=== PATIENT | female | born 1945 | race Caucasian/White ===

== ENCOUNTER 2019-06-16 23:47 | Emergency (ER) | payer OTHER ==
[2019-06-16] MEDS ORDERED: SODIUM CHLORIDE 500 ML IV STA (23:52)
[2019-06-16] MEDS ORDERED: ONDANSETRON 4 MG/2 ML VIAL IVPUSH ONE (23:52)
--- NOTE | 2019-06-16 23:52 | PDOC ---
History of Present Illness - General Chief Complaint: Vomiting/Diarrhea Stated Complaint: VOMITING DIARRHEA AFTER EATING Time Seen by Provider: 06/16/19 23:52 - History of Present Illness Initial Comments: This 73-year-old woman with a history of peptic ulcer disease but no other significant medical history presents with several hours of nausea/vomiting/ diarrhea. The patient traveled today back from [place] where she was visiting; she states that she stored some food including veal sandwiches ,which contained cheese, in the car while she travel. She admits that the interior of the car was rather warm and the food was stored during the entire 2-1/2 hours that it took to return home.. When she arrived home early this evening, she ate a sandwich and within an hour began to have epigastric pain followed by nausea and vomiting. This was followed by multiple episodes of loose stools. Other than a tiny amount of blood seen in lateral portions of the emesis, no significant amounts of blood or mucus seen in either the vomiting or bowel movements. She also had significant given amount of intermittent crampy abdominal pain during the evening. No fever/chills noted. Past History - Past Medical History Allergies/Adverse Reactions: Allergies Allergy/AdvReac Type Severity Reaction Status Date / Time codeine Allergy Verified 06/17/19 00:11 latex Allergy Verified 06/17/19 00:11 Home Medications: Ambulatory Orders Ondansetron [Zofran *Odt*] 4 mg SL BID PRN #8 od.tablet 06/17/19 Ranitidine HCl [Zantac] 150 mg PO BID 06/17/19 Cardiac Disorders: No Diabetes: No GI Disorders: Yes (peptic ulcer disease) HTN: No Hypercholesterolemia: No - Suicide/Smoking/Psychosocial Hx Smoking History: Never smoked Hx Alcohol Use: No Substance Use Type: None Review of Systems - Review of Systems Able to Perform ROS?: Yes Comments:: 12 point review of systems is negative except for what is noted in the history of present illness *Physical Exam - Physical Exam Comments: GENERAL: Elderly female, alert and oriented 3 in mild distress secondary to nausea/abdominal pain HEAD: Normal with no signs of trauma. EYES: PERRLA, EOMI, sclera anicteric, conjunctiva clear. ENT: Ears normal, nares patent, oropharynx clear without exudates. Dry mucous membranes. NECK: Normal range of motion, supple without lymphadenopathy, JVD, or masses. LUNGS: Breath sounds equal, clear to auscultation bilaterally. No wheezes, and no crackles. HEART:Regular rate and rhythm, normal S1 and S2 without murmur, rub or gallop. ABDOMEN:.normal bowel sounds generalized mild tenderness without point tenderness/rebound/guarding/masses EXTREMITIES: Normal range of motion, no edema. No clubbing or cyanosis. No erythema, or tenderness. NEUROLOGICAL: Cranial nerves II through XII grossly intact. Normal speech. No focal neurological deficits. SKIN: Warm, Dry, normal turgor, no rashes or lesions noted. Progress Note - Progress Note Progress Note: This 73-year-old woman presents with nausea/vomiting/diarrhea 1 hour after eating food that had been stored at room temperature in a car for at least 2-1/ 2 hours while returning home from a visit. Exam as noted with dry mucous membranes and mild, generalized tenderness without point tenderness or masses. Clinical presentation most consistent with gastroenteritis likely secondary to exposure to food spoilage. Although infectious viral or bacterial etiology is still possible, the clear temporal relationship between the onset of symptoms and ingestion of food that had been stored improperly highly suggests that this is toxin-related gastroenteritis. Patient received 500 mL of normal saline and 4 mg Zofran IV. Patient felt significantly better after IV hydration and Zofran. She states that her abdominal cramping and nausea have resolved. Reexamination reveals mucous membranes that are better hydrated and no significant tenderness present in her abdomen. Patient will be discharged with recommendation to maintain a clear liquid diet and advance diet cautiously. Prescription for Zofran ODT 4 mg to be taken up to twice a day as needed for persistent nausea was sent to her pharmacy She return to the emergency room if she has persistent recurrent vomiting or bloody diarrhea. She should follow-up with her general medical doctor within the next 48 hours. *DC/Admit/Observation/Transfer Diagnosis at time of Disposition: Acute gastroenteritis - Discharge Dispostion Disposition: HOME Condition at time of disposition: Stable - Prescriptions Prescriptions: Ondansetron [Zofran *Odt*] 4 mg SL BID PRN #8 od.tablet PRN Reason: Nausea - Referrals - Patient Instructions Printed Discharge Instructions: DI for Bacterial Gastroenteritis -- Adult Additional Instructions: Rest; clear liquid diet Advance diet cautiously as tolerated Zofran ODT 4 mg up to twice a day as needed for nausea Return to ER if you have persistent nausea/vomiting, severe pain, fever or bloody diarrhea Follow-up with your doctor within the next 48 hours - Post Discharge Activity
[2019-06-16] MEDS ORDERED: ONDANSETRON 4 MG/2 ML VIAL ONE (23:57)
[2019-06-17 00:26] VITALS: PULSE 60; TEMP 98.3; BMI 25.5
[2019-06-17 00:56] VITALS: BP 129/68
== END 2019-06-17 01:00 | disposition home or self-care (01) ==
LOC: FER 23:47
PROC: 3E033GC Introduction of Other Therapeutic Substance into Peripheral Vein, Percutaneous Approach (ICD-10-PCS; principal; 2019-06-16)
PROC: 3E0337Z Introduction of Electrolytic and Water Balance Substance into Peripheral Vein, Percutaneous Approach (ICD-10-PCS; 2019-06-16)
DX: K52.9 Noninfective gastroenteritis and colitis, unspecified (principal)
CPT/HCPCS: 99281-25

== ENCOUNTER 2021-02-10 08:45 | Day surgery (SDC) | payer OTHER ==
[2021-02-02 14:14] VITALS: BMI 25.5
[2021-02-10] MEDS ORDERED: CYCLOPENTOLATE 2% OPHTH SOLN 2 ML BOTTLE ONE (09:29)
[2021-02-10] MEDS ORDERED: TROPICAMIDE 1% OPHTH SOLN 15 ML BOTTLE ONE (09:30)
[2021-02-10] MEDS ORDERED: PHENYLEPHRINE 2.5% OPHTH SOLN 15 ML BOTTLE ONE (09:30)
[2021-02-10] MEDS ORDERED: CIPROFLOXACIN 0.3% EYE DROPS 5 ML BOTTLE ONE (09:30)
[2021-02-10] MEDS ORDERED: TROPICAMIDE 1% OPHTH SOLN 15 ML BOTTLE OS ONE ×3 (10:10→10:20)
[2021-02-10] MEDS ORDERED: CIPROFLOXACIN 0.3% EYE DROPS 5 ML BOTTLE OS ONE ×3 (10:10→10:20)
[2021-02-10] MEDS ORDERED: PHENYLEPHRINE 2.5% OPHTH SOLN 15 ML BOTTLE OS ONE ×3 (10:10→10:20)
[2021-02-10] MEDS ORDERED: CYCLOPENTOLATE 2% OPHTH SOLN 2 ML BOTTLE OS ONE ×3 (10:10→10:20)
[2021-02-10] MEDS ORDERED: MIDAZOLAM HCL 2 MG/2 ML SINGLE DOSE VIAL ONE (10:36)
[2021-02-10] MEDS ORDERED: CARBACHOL 0.01% INTRA-OCULAR 1.5 ML VIAL ONE (10:57)
[2021-02-10] MEDS ORDERED: BSS (NA/CA/MG/K) BALANCED SALT SOLUTION OPHTH SOLN 15 ML BOTTLE ONE (10:57)
[2021-02-10] MEDS ORDERED: LIDOCAINE 1% P/F 10 MG/ML VIAL ONE (10:57)
[2021-02-10] MEDS ORDERED: NEO/POLYMYX B SULF/DEXAMETH OPHTHALMIC 5ML BOTTLE ONE (10:57)
[2021-02-10] MEDS ORDERED: TETRACAINE 0.5% OPHTH SOLN 2 ML BOTTLE ONE (10:57)
[2021-02-10 11:37] VITALS: TEMP 97.8
[2021-02-10 11:56] VITALS: BP 121/62; PULSE 81
== END 2021-02-10 12:00 | disposition home or self-care (01) ==
LOC: FASU 08:45
PROVIDERS: ATTEND Ophthalmology
PROC: 08RK3JZ Replacement of Left Lens with Synthetic Substitute, Percutaneous Approach (ICD-10-PCS; principal; 2021-02-10 11:12)
DX: H26.8 Other specified cataract (principal)

== ENCOUNTER 2021-03-03 07:25 | Day surgery (SDC) | payer OTHER ==
[2021-02-25 14:29] VITALS: BMI 24.8
[2021-03-03] MEDS: PHENYLEPHRINE 2.5% OPHTH SOLN 15 ML BOTTLE ONE ×3 (07:45→07:57)
[2021-03-03] MEDS: TROPICAMIDE 1% OPHTH SOLN 15 ML BOTTLE ONE ×3 (07:45→08:00)
[2021-03-03] MEDS: CIPROFLOXACIN 0.3% EYE DROPS 5 ML BOTTLE ONE ×3 (07:45→07:57)
[2021-03-03] MEDS: CYCLOPENTOLATE 2% OPHTH SOLN 2 ML BOTTLE ONE ×3 (07:45→07:57)
[2021-03-03] MEDS ORDERED: TETRACAINE 0.5% OPHTH SOLN 2 ML BOTTLE ONE (09:18)
[2021-03-03] MEDS ORDERED: EPINEPHrine/PF 1 MG/1 ML (1:1,000) AMPULE ONE (09:18)
[2021-03-03] MEDS ORDERED: LIDOCAINE 1% P/F 10 MG/ML VIAL ONE (09:18)
[2021-03-03] MEDS ORDERED: NEO/POLYMYX B SULF/DEXAMETH OPHTHALMIC 5ML BOTTLE ONE (09:18)
[2021-03-03] MEDS ORDERED: CARBACHOL 0.01% INTRA-OCULAR 1.5 ML VIAL ONE (09:18)
[2021-03-03] MEDS ORDERED: BSS (NA/CA/MG/K) BALANCED SALT SOLUTION OPHTH SOLN 15 ML BOTTLE ONE (09:18)
[2021-03-03 10:06] VITALS: TEMP 98.2
[2021-03-03 10:08] VITALS: BP 124/65; PULSE 66
== END 2021-03-03 10:08 | disposition home or self-care (01) ==
LOC: FASU 07:25
PROVIDERS: ATTEND Ophthalmology
PROC: 08RJ3JZ Replacement of Right Lens with Synthetic Substitute, Percutaneous Approach (ICD-10-PCS; principal; 2021-03-03 09:32)
DX: H26.8 Other specified cataract (principal)

== ENCOUNTER 2023-07-17 18:42 | Emergency (ER) | payer OTHER ==
[2023-07-17 19:02] VITALS: PULSE 81; RESP 16; TEMP 98.7; BMI 26.7
[2023-07-17 20:13] VITALS: BP 126/57
[2023-07-17 20:20] LABS: HEMATOCRIT 38.1 % (32.4-45.2); HEMOGLOBIN 12.8 G/dL (10.7-15.3); MCH 27.5 pg (25.7-33.7); MCHC 33.6 g/dl (32.0-36.0); MEAN PLT VOLUME 8.4 fl (7.5-11.1); PLATELET COUNT 222.7 10^3/uL (134-434); RBC 4.65 10^6/uL (3.60-5.2); RDW 14.9 % (11.6-15.6); WHITE BLOOD COUNT 7.8 10^3/uL (4.0-10.8)
[2023-07-17 20:38] LABS: ALBUMIN 4.1 g/dl (3.4-5.0); BILIRUBIN,TOTAL 0.5 mg/dl (0.2-1); CALCIUM 9.1 mg/dl (8.5-10.1); CREATININE 0.8 mg/dl (0.6-1.3); POTASSIUM 3.9 mmol/L (3.5-5.1); TOT PROT 5.8 g/dl (6.4-8.2)
== END 2023-07-17 21:37 | disposition home or self-care (01) ==
LOC: FER 18:42
DX: R07.1 Chest pain on breathing (principal)
CPT/HCPCS: 36415; 71045-TC-FY; 80053; 82550; 84484; 85027; 93005; 93010; 99285-25